=== PATIENT | female | born 1980 | race Caucasian/White ===

== ENCOUNTER 2019-07-26 17:25 | Outpatient (CLI) | payer OTHER, SELFPAY ==
--- NOTE | ~2019-07-26 | XR_ITS ---
EXAMINATION: XR chest 2V DATE: 07/26/2019 17:39 INDICATION: Follow-up pneumonia TECHNIQUE: PA and lateral views of the chest were obtained. COMPARISON: Chest radiograph dated 07/13/2019 FINDINGS: Prior consolidation in the superior segment of the left lower lobe has resolved. No residual airspace opacities, pulmonary edema, pleural effusion or pneumothorax. The cardiomediastinal silhouette is no rmal. Mild thoracolumbar spondylosis. IMPRESSION: 1. No acute cardiopulmonary disease with resolution of prior left lower lobe pneumonia. Reviewed, dictated and finalized at location A. NTORY TECHNICIAN IMPRESSION: 1. No acute cardiopulmonary disease with resolution of prior left lower lobe pn eumonia.
== END 2019-07-26 17:26 | disposition home or self-care (01) ==
PROVIDERS: PCP Internal Medicine; Visit Provider Nurse Practitioner
DX: J18.9 Pneumonia, unspecified organism (principal)
CPT/HCPCS: 71046

== ENCOUNTER 2019-08-26 07:31 | Emergency (ER) | payer OTHER, SELFPAY ==
--- NOTE | ~2019-08-26 | XR_ITS ---
EXAMINATION: XR chest 2V 08/26/2019 08:49 INDICATION: Cough, shortness of breath. Recent pneumonia. PROCEDURE: 2 view chest COMPARISON: Comparison to multiple prior studies sequentially, with oldest reviewed study dated 12/17. FINDINGS: The lungs are clear. The cardiomediastinal silhouette is within normal limits. There are no pleural effusions. There is no pneumothorax suspected. IMPRESSION: 1: NO ACUTE CARDIOPULMONARY DISEASE. Reviewed, dictated and finalized at location B. TAR ROOFER HELPER
[2019-08-26 07:43] VITALS: BP 150/92; PULSE 94; RESP 16; TEMP 36.5; O2SAT 100
--- NOTE | 2019-08-26 08:11 | ED.URI ---
HPI - URI/Sore Throat General Chief Complaint: Upper Respiratory Infection Stated Complaint: Cough, congestion Time Seen by Provider: 08/26/19 08:01 Source: patient and RN notes reviewed Mode of arrival: ambulatory Limitations: no limitations History of Present Illness HPI Narrative: Pt is a 39 y/o female with a Hx of asthma, who presents to the ED with c/o productive cough. She notes that she was evaluated by her PCP, Dr. Sadler, in June for upper respiratory symptoms, and states that she was diagnosed with pneumonia. Pt notes that she has since finished two different antibiotics and two rounds of steroids, but states that her cough has continued to persist. She does note that she has received a follow-up Chest X-Ray, which showed no evidence of pneumonia. Pt notes that she travelled to [place], [place] 1 week ago, and states that she has been producing a yellow-colored sputum with her cough ever since returning home. She also currently reports rhinorrhea, sinus pressure, pain in the rt side of her face, chest tightness, and SOB, but denies any vomiting or fever. MD elicited complaint: cough Pertinent past history: pneumonia and asthma Onset (ago): day(s) (4) Description of mucous: yellow Context: recent travel Associated symptoms: rhinorrhea, shortness of breath and other (sinus pressure; rt sided facial pain; chest tightness) Related Data Home Medications Medication Instructions Recorded Confirmed albuterol sulfate [Ventolin HFA] 2 puff INHALATION QID 07/09/19 08/23/19 Allergies Allergy/AdvReac Type Severity Reaction Status Date / Time lavender (Lavandula Allergy Intermediate HIVES Verified 08/26/19 07:46 angustifolia) Review of Systems Review of Systems: All systems reviewed & are unremarkable except as noted in HPI and below Constitutional: Constitutional: Denies chills, Denies fever(s) and Denies weakness ENT: Reports nasal discharge, Denies neck pain, Reports sinus pressure and Reports other (rt sided facial pain) Cardiovascular: Cardiovascular: Reports other (chest tightness) Respiratory: Respiratory: Reports cough (productive) and Reports dyspnea Gastrointestinal: Gastrointestinal: Denies abdominal pain, Denies diarrhea, Denies nausea and Denies vomiting Musculoskeletal: Musculoskeletal: Denies back pain and Denies neck pain Neurologic: Denies weakness PMFSH Past Medical History Medical History Acute nonsuppurative otitis media, unspecified Asthma Body mass index (bmi) 39.0-39.9, adult (01/18/18) BRBPR (bright red blood per rectum) Bronchitis Chest pain at rest Chronic sinusitis, unspecified Dyspnea on effort Elevated fasting glucose Elevated liver enzymes Gastroenteritis GERD (gastroesophageal reflux disease) GI bleed Hematuria, unspecified Herniated disc HTN (hypertension) IBS (irritable bowel syndrome) Leukocytosis, unspecified Neck pain Pneumonia Proteinuria, unspecified Recurrent pneumonia Shingles SOB (shortness of breath) Unspecified acute noninfective otitis externa, right ear Surgical History Surgical History History of knee replacement History of sinus surgery Social History Social History Smoking status: Never smoker Alcohol intake: current Gender identity (if verbalized by the patient): Female Exam Const: General: no acute distress and well developed Orientation/consciousness: oriented to person, oriented to place, oriented to time and patient oriented x3 HENMT: Head: normocephalic Ears: external ears normal Neck: Neck: normal visual inspection and full ROM Chest: Chest palpation & inspection: normal inspection of the chest and no tenderness Resp: Effort & Inspection: normal respiratory effort Auscultation: clear to auscultation bilaterally Cardio: Rate: regular rate Rhythm: regular rhythm GI: GI Palp: No
--- NOTE | 2019-08-26 08:20 | ECG_ITS ---
Measurements Intervals [place] Rate: 79 P: 27 TN: 165 QRS: -16 QRSD: 84 T: 6 QT: 363 QTc: 416 Interpretive Statements SINUS RHYTHM BORDERLINE T WAVE ABNORMALITY- INFERIOR LEADS BASELINE ARTIFACT- I, II, AVR, AVL, V3-V4 BORDERLINE ECG Electronically Signed On 08-26-2019 13:17:59 ASSISTANT THERAPY AIDE by Morris Woodson D.O.
[2019-08-26] MEDS: IPRATROPIUM BR 0.02% INH SOLN 0.5 MG/2.5 ML VIAL INHALATION (08:32)
[2019-08-26 08:33] VITALS: PULSE 87; RESP 20
[2019-08-26] MEDS: ALBUTEROL SULFATE NEB 2.5 MG/0.5 ML INH INHALATION (08:33)
[2019-08-26 08:40] LABS: Basophils Absolute Auto 0.1 K/mm3 (0.0-0.1); Basophils Percent Auto 0.6 % (0.2-1.2); Eosinophils Absolute Auto 0.3 K/mm3 (0-0.3); Eosinophils Percent Auto 2.2 % (0-4.4); Hematocrit 36.9 % (37.0-47.0); Immature Granulocyte Absolute 0.04 K/mm3 (0.00-0.031); Immature Granulocyte Percent A 0.3 % (0-0.5); Lymphocytes Absolute Auto 2.43 K/mm3 (0.9-3.2); Lymphocytes Percent Auto 18.5 % (18.3-44.2); Mean Corpuscular HGB Conc 32.5 g/dl (32-36); Mean Corpuscular Hemoglobin 28.6 pg (26-34); Mean Corpuscular Volume 88.1 fl (80-100); Mean Platelet Volume 9.3 fl (7.4-10.4); Monocytes Absolute Auto 0.7 K/mm3 (0.1-0.6); Monocytes Percent Auto 4.9 % (2.6-8.5); Neutrophils Absolute Auto 9.7 K/mm3 (1.3-6.7); Neutrophils Percent Auto 73.5 % (45.5-73.1); Platelet Count Result 380 k/mm3 (150-375); Red Blood Count 4.19 M/mm3 (4.2-5.4); Red Cell Distribution Width 13.2 % (11.5-14.5); White Blood Count 13.2 K/mm3 (4.5-10.0)
[2019-08-26 08:41] VITALS: PULSE 88; RESP 20
[2019-08-26 08:54] LABS: Alanine Aminotransferase 19 U/L (4-35); Albumin Level 4.2 g/dL (3.5-5.1); Alkaline Phosphatase 109 U/L (38-126); Aspartate Amino Transferase 23 U/L (14-36); Bilirubin,Total 0.5 mg/dL (0.2-1.3); Blood Urea Nitrogen 7 mg/dL (7-17); Calcium 8.8 mg/dL (8.4-10.2); Carbon Dioxide 29 mmol/L (22-30); Chloride 102 mmol/L (98-107); Estimated CRCL calculation 120 ml/min; Estimated Glomerular Filt Rate > 60; Glucose 108 mg/dL (65-105); Potassium 3.7 mmol/L (3.4-5.0); Sodium 138 mmol/L (137-145)
[2019-08-26 09:05] LABS: Troponin I < 0.012 ng/mL (0.000-0.034)
[2019-08-26 11:15] VITALS: BP 124/47; PULSE 79; RESP 15; O2SAT 98
[2019-08-26 12:58] VITALS: BP 131/92; PULSE 82; RESP 20; TEMP 36.8; O2SAT 100
== END 2019-08-26 13:00 | disposition home or self-care (01) ==
PROVIDERS: Emergency Provider Emergency Medicine; PCP Internal Medicine
DX: J06.9 Acute upper respiratory infection, unspecified (principal); J45.909 Unspecified asthma, uncomplicated; K21.9 Gastro-esophageal reflux disease without esophagitis; I10 Essential (primary) hypertension; K58.9 Irritable bowel syndrome, unspecified; Z96.659 Presence of unspecified artificial knee joint; R94.31 Abnormal electrocardiogram [ECG] [EKG]
CPT/HCPCS: 36415; 71046; 80053; 84484; 85025; 87081; 87804; 87880; 93005; 94640; 99284

== ENCOUNTER 2019-12-05 15:15 | Outpatient (CLI) | payer OTHER, SELFPAY ==
--- NOTE | ~2019-12-05 | CT_ITS ---
EXAMINATION: CTA chest PE protocol DATE: 12/05/2019 15:50 INDICATION: Shortness of breath TECHNIQUE: Computed tomography (CT) pulmonary angiogram of the chest was performed with 100 mL Omnipa que-350 intravenous contrast. Additional 3D reconstructions utilizing coronal maximum intensity proje ction (MIP) were performed. Automated exposure control and iterative reconstruction technique were em ployed. The dose-length product was 565.97 mGy-cm. COMPARISON: None FINDINGS: Good contrast opacification of the pulmonary arteries. There is mild streak artifact from dense contr ast in the superior vena cava and right atrium. Mild scattered respiratory motion artifact which does not significantly limit evaluation. No pulmonary embolism. Minimal atelectasis at the lingula and th e dependent lower lobes. No pneumonia, pulmonary edema, pleural effusion or pneumothorax. Heart size is normal. No pericardial effusion. Thoracic aorta is normal in caliber with no dissection. No pathol ogically enlarged thoracic lymphadenopathy. Visualized upper abdomen and bones are unremarkable. IMPRESSION: 1. No pulmonary embolism or other acute cardiopulmonary disease. Reviewed, dictated and finalized at location A.
[2019-12-05 15:47] LABS: Estimated Glomerular Filt Rate > 60
== END 2019-12-05 15:16 | disposition home or self-care (01) ==
PROVIDERS: PCP Internal Medicine; Visit Provider Internal Medicine Critical Care Medicine
DX: R06.02 Shortness of breath (principal)
CPT/HCPCS: 36415; 71275; Q9967

== ENCOUNTER 2020-02-06 00:39 | Outpatient (CLI) | payer OTHER, SELFPAY ==
[2020-02-06 20:23] LABS: SARS-CoV-2 RNA PCR Negative
== END 2020-02-06 00:40 | disposition home or self-care (01) ==
LOC: ANHCOVIDDT 00:39
PROVIDERS: PCP Internal Medicine; Visit Provider Internal Medicine Critical Care Medicine
DX: Z01.812 Encounter for preprocedural laboratory examination (principal); Z20.828 Contact with and (suspected) exposure to other viral communicable diseases
CPT/HCPCS: 87635; C9803; U0003

== ENCOUNTER 2020-02-08 01:28 | Day surgery (SDC) | payer OTHER, SELFPAY ==
[2020-02-02 09:03] VITALS: BMI 37.8
[2020-02-08] VITALS (11 sets, daily range): BP systolic 109–142; BP diastolic 75–89; PULSE 77–103; RESP 17–28; TEMP 36.4–36.7; O2SAT 93–100
--- NOTE | 2020-02-08 10:08 | WPDANESEPPF ---
Anes - Initial Pre Proc Eval Procedure: Operation Date: 02/08/20 11:00 Proposed Procedures p Bronchoscopy - Inessa Gonzales MD Date/Time: 02/08/20 10:08 Surgeon: Inessa Gonzales MD Pre Op Diagnosis: Chronic Cough Patient Data Age: 39 Gender: F Height: 5 ft 4 in Weight: 103.3 kg Last Vital Signs Pulse 77 02/08/20 10:01 Resp 17 02/08/20 10:01 BP 115/83 02/08/20 10:01 Pulse Ox 98 02/08/20 10:01 Allergies Allergy/AdvReac Type Severity Reaction Status Date / Time lavender (Lavandula Allergy Intermediate HIVES Verified 02/02/20 08:58 angustifolia) Home Medications Medication Instructions Recorded Confirmed Type montelukast 10 mg tablet 10 mg PO DAILY #30 tablet 08/23/19 02/02/20 Rx albuterol sulfate 2.5 mg INHALATION Q4-6H PRN #180 ml 09/14/19 02/02/20 Rx lisinopril 10 mg tablet 10 mg PO DAILY #90 tablet 12/22/19 02/02/20 Rx albuterol sulfate [Ventolin HFA] 2 puff INHALATION QID PRN 02/02/20 02/02/20 History budesonide-formoterol [Symbicort] 1 puff INHALATION DAILY 02/02/20 02/02/20 History Patient hx anesthesia problems: none Family hx anesthesia problems: none PMFSH Past Medical History Medical History Acute nonsuppurative otitis media, unspecified Asthma Body mass index (bmi) 39.0-39.9, adult (01/18/18) BRBPR (bright red blood per rectum) Bronchitis Chest pain at rest Chronic sinusitis, unspecified Dyspnea on effort Elevated fasting glucose Elevated liver enzymes Gastroenteritis GERD (gastroesophageal reflux disease) GI bleed Hematuria, unspecified Herniated disc HTN (hypertension) IBS (irritable bowel syndrome) Leukocytosis, unspecified Neck pain Pneumonia Proteinuria, unspecified Recurrent pneumonia Shingles SOB (shortness of breath) Unspecified acute noninfective otitis externa, right ear Surgical History Surgical History History of knee replacement History of sinus surgery Family History Family History Grandparent Family history of lung cancer Mother Hypertension T-cell lymphoma Father Patient's father is in good health Sibling Patient's brother is in good health Social History Social History Smoking status: Never smoker Alcohol intake: current Gender identity (if verbalized by the patient): Female Anes - Eval Final PreProcedure Day of Procedure 02/08/20 10:08 Patient weight: obese Heart: regular rate and rhythm Lungs: clear to auscultation Airway: Mallampati scale class II Neurological: alert and oriented Last oral intake: >/= 8 hours ASA classification: III Emergent: no Anesthetic plan: proceed Anesthesia type and monitoring: general LMA and standard monitoring Informed Consent: The patient's anesthetic plan and its attendant risks and benefits were discussed with the patient/family/POA. Questions were solicited and answers provided to the satisfaction of the patient/family/POA.
[2020-02-08] MEDS: LACTATED RINGERS 1,000 ML 150 ML IV CONT (10:17)
--- NOTE | 2020-02-08 10:55 | PM.IMHP ---
H&P: HPI History of Present Illness Date/Time: 02/08/20 10:55 Reason for H&P: chronic cough, bronchoscopy today. This 39-year-old female was last seen in our office November 29, 2019. She has had a history of asthma. She has had multiple emergency room visits. She has a negative chest x-ray. She coughs constantly including in her sleep and she also snores. She coughs and is short of breath with exertion. Most of the time her cough is problematic and she produces white to clear sputum from deep in her chest. Treatment : Symbicort 160/4.5, Ventolin rescue inhaler albuterol and Singulair. She uses her nebulizer 3 to 4 times a day. she had a positive per testis antibody and was treated with at least 2 rounds of [place] through my send which should have cover this. She has persistent coughing. The differential diagnosis includes under controlled asthma, lingering percusses, gastroesophageal reflux disease, endobronchial sarcoid.. The patient agrees to bronchoscopy. Risks benefits alternatives and complications were discussed and she agreed to this procedure today. DATA: * 02/15/2018 (+) Methacholine challenge on highest dose * 02/01/2018 pulmonary function test restrictive ventilatory impairment * 02/15/2018 NIOX 15 ppb normal Her IgE on 01/18/2018 was 36, normal. RAST is normal. IgG levels are normal. Chief complaint: Chronic Cough Narrative: Meagan Raphael is a 39 year old female [facility] Past Medical History Medical History Acute nonsuppurative otitis media, unspecified Asthma Body mass index (bmi) 39.0-39.9, adult (01/18/18) BRBPR (bright red blood per rectum) Bronchitis Chest pain at rest Chronic sinusitis, unspecified Dyspnea on effort Elevated fasting glucose Elevated liver enzymes Gastroenteritis GERD (gastroesophageal reflux disease) GI bleed Hematuria, unspecified Herniated disc HTN (hypertension) IBS (irritable bowel syndrome) Leukocytosis, unspecified Neck pain Pneumonia Proteinuria, unspecified Recurrent pneumonia Shingles SOB (shortness of breath) Unspecified acute noninfective otitis externa, right ear Surgical History Surgical History History of knee replacement History of sinus surgery Family History Family History Grandparent Family history of lung cancer Mother Hypertension T-cell lymphoma Father Patient's father is in good health Sibling Patient's brother is in good health Social History Social History Smoking status: Never smoker Alcohol intake: current Gender identity (if verbalized by the patient): Female Meds Home Medications and Allergies Home Medications Medication Instructions Recorded Confirmed Type montelukast 10 mg tablet 10 mg PO DAILY #30 tablet 08/23/19 02/02/20 Rx albuterol sulfate 2.5 mg INHALATION Q4-6H PRN #180 ml 09/14/19 02/02/20 Rx lisinopril 10 mg tablet 10 mg PO DAILY #90 tablet 12/22/19 02/02/20 Rx albuterol sulfate [Ventolin HFA] 2 puff INHALATION QID PRN 02/02/20 02/02/20 History budesonide-formoterol [Symbicort] 1 puff INHALATION DAILY 02/02/20 02/02/20 History Allergies Allergy/AdvReac Type Severity Reaction Status Date / Time lavender (Lavandula Allergy Intermediate HIVES Verified 02/02/20 08:58 angustifolia) Vital Signs Vital Signs - 24 hr 02/08/20 10:01 Pulse Rate 77 Respiratory Rate 17 Blood Pressure 115/83 Pulse Oximetry 98 Exam Const: General: healthy appearing and no acute distress Orientation/consciousness: patient oriented x3 HENMT: Ears: hearing grossly normal bilaterally General nose exam: Normal external nose present and Normal nares present Face and sinus: normal facial exam Mouth: Yes Normal oral and palatal mucosa present Throat: posterior oropharynx normal Eyes: General: appearance
[2020-02-08] MEDS: LIDOCAINE HCL 2% LOCAL INJ 20 ML VIAL 6 ML INFILTRATE (12:20)
[2020-02-08 13:26] LABS: Appearance Bronchial Fluid Clear; Color Bronchial Fluid Colorless; Lymphocytes Bronchial Fluid 9 %; Macrophages Bronchial Fluid 3; Monocytes Bronchial Fluid 7 %; Neutrophils Bronchial Fluid 36 %; Source Bronchial Fluid Bronchial Washings
[2020-02-08 13:27] LABS: Other Cells Bronchial Fluid 45 %
== END 2020-02-08 13:30 | disposition home or self-care (01) ==
PROVIDERS: PCP Internal Medicine; Visit Provider Internal Medicine Critical Care Medicine
PROC: 0BJ08ZZ Inspection of Tracheobronchial Tree, Via Natural or Artificial Opening Endoscopic (ICD-10-PCS; CPT 31622; principal; 2020-02-08 11:00)
DX: J42 Unspecified chronic bronchitis (principal); J45.909 Unspecified asthma, uncomplicated; R06.00 Dyspnea, unspecified; I10 Essential (primary) hypertension; K21.9 Gastro-esophageal reflux disease without esophagitis; K58.9 Irritable bowel syndrome, unspecified; E66.9 Obesity, unspecified; Z68.39 Body mass index [BMI] 39.0-39.9, adult
CPT/HCPCS: 31625; 31624; 36415; 85999; 87015; 87070; 87071; 87102; 87116; 87205; 87206; 87581; 88108; 88160; 88305; J0330; J1100; J2405; J2704; J3010; J7120